=== PATIENT | female | born 1955 | race African-American/Black ===

== ENCOUNTER 2025-05-14 19:40 | Emergency (ER) | payer OTHER ==
[~2025-05-14] VITALS: Ht 170.2 cm; Wt 73.0 kg
[2025-05-14 19:46] VITALS: O2SAT 98
[2025-05-14] MEDS: SODIUM CHLORIDE 0.9% 1,000 ML IV ONE (20:46)
[2025-05-14 20:47] LABS: BASOPHILS % 0.4 % (0.0-2.0); EOSINOPHILS % 2.2 % (0.0-5.0); HEMATOCRIT. 35.5 % (36.0-48.0); HEMOGLOBIN. 11.7 g/dL (12.0-16.0); LYMPHOCYTES % 27.1 % (20.0-50.0); MEAN PLATELET VOLUME 8.1 fl (7.4-10.4); MONOCYTES % 6.5 % (2.0-8.0); NEUTROPHILS % 63.8 % (40.0-76.0); PLATELET 301 x1000/uL (130-400); RED BLOOD CELL COUNT 3.97 mill/uL (4.2-5.4); RED CELL DISTRIBUTION WIDTH 13.2 % (11.6-14.6)
[2025-05-14 21:02] LABS: CREATININE 1.0 mg/dL (0.6-1.0); UREA NITROGEN BLOOD 12 mg/dL (9-23)
[2025-05-14 21:03] LABS: PROTEIN TOTAL 6.3 g/dL (6.0-8.3); TROPONIN I HIGH SENSITIVITY < 4 ng/L (3.0-34)
[2025-05-14 21:04] LABS: ASPARTATE AMINOTRANSFERASE 28 IU/L (<34); BILIRUBIN DIRECT 0.1 mg/dL (<=3.0); BILIRUBIN TOTAL 0.5 mg/dL (0.1-1.0)
[2025-05-14 22:34] VITALS: BP 118/79; PULSE 78; RESP 14; TEMP 36.9; O2SAT 97
== END 2025-05-14 22:52 | disposition home or self-care (01) ==
LOC: ER 19:52
DX: R55 Syncope and collapse (principal); I10 Essential (primary) hypertension; R06.02 Shortness of breath
CPT/HCPCS: 99285; 96360; 71045; 80076; 80048; 83880; 83735; 85025; 84484; 36415; 93005; J7030